=== PATIENT | female | born 1955 | race Caucasian/White ===

== ENCOUNTER 2017-11-23 14:52 | Emergency (ER) | payer BC ==
[2017-11-23] MEDS ORDERED: HYDROmorphONE/DILAUDID 2 MG/ML INJ IVP ONE (15:05)
[2017-11-23] MEDS ORDERED: ONDANSETRON 4 MG/2 ML VIAL IVP ONE (15:05)
[2017-11-23] MEDS ORDERED: NS 500 ML IV ONE (15:05)
--- NOTE | 2017-11-23 15:13 | EDPHY ---
H & P Time Seen by Provider: 11/23/17 15:01 HPI/ROS: HPI Abdominal pain. 62-year-old female by private vehicle. She complains of right lower quadrant abdominal pain which is described as aching and cramping onset 2 hr prior to arrival. No associated nausea. No vomiting. Last bowel movement was about an hour ago. No diarrhea. No bloody or melenic stool. Last meal was about an hour ago. Prior abdominal surgical history includes . ROS: Constitutional: No fever, no chills. No weakness. Eyes: No discharge. No changes in vision. ENT: No sore throat. No nasal congestion or rhinorrhea. Respiratory: No cough. No shortness of breath. Cardiac: No chest pain, no palpitations. Gastrointestinal: As above, no vomiting, no diarrhea. Genitourinary: No hematuria. No dysuria or increased frequency with urination. Musculoskeletal: No back pain. No neck pain. No myalgias or arthralgias. Skin: No rashes. Neurological: No headache. No focal weakness or altered sensation. Past medical history: As above. Otherwise no significant past medical history. Social history: She is here with her daughter. Nonsmoker. Social alcohol. Physical Exam: General Appearance: Alert, no distress. This patient is responding to questions appropriately and in full sentences. This patient appears well- hydrated and well-nourished. Eyes: Pupils equal and round no pallor or injection. No lid edema, erythema or injection. Respiratory: There are no retractions, lungs are clear to auscultation with good air movement bilaterally. Cardiovascular: Regular rate and rhythm. No murmur. Gastrointestinal: Abdomen is soft with mild to moderate right lower quadrant tenderness on palpation, no masses, bowel sounds normal. No focal tenderness at McBurney's point. No Condon sign. Neurological: Motor sensory function is grossly intact. Cranial nerves are normal. Gait is normal. Skin: Warm and dry, no rashes. Musculoskeletal: Neck is supple and nontender. Extremities are symmetrical. All joints range without pain or impingement. Psychiatric: No agitation. No depression. Database: EKG: Imaging: CT abdomen and pelvis with IV contrast: The appendix is well visualized and is normal. Study significant for a right-sided stone which measures 2 x 5 mm x 5 model meters which appears to be just inside the bladder. There is moderate right-sided hydronephrosis. Hepatic steatosis is noted. This study is otherwise normal. Study discussed with staff radiologist Dr. Ki Mcdowell. Procedures: Emergency department course: Vital signs reviewed. She is hypertensive. Vital signs otherwise normal. She consents for CT imaging to evaluate for appendicitis. She will be given IV hydromorphone and IV Zofran as needed for pain and nausea. 4:55 p.m., patient re-evaluated. She is comfortable at this time since having the above pain medication which included 0.25 mg of IV hydromorphone. She was given a dose of Toradol 30 mg IV. No contraindications to NSAIDs. No history of peptic ulcer disease or renal dysfunction. She was given 0.4 mg of oral Flomax. She feels comfortable going home at this time with her daughter who is present at bedside. She will return to [place] tomorrow. She will follow up with a urologist in [place] this week. She feels comfortable being discharged. Return to emergency department precautions reviewed with her. All of her questions were answered. She was discharged in good condition. Differential Diagnosis: The differential diagnosis on this patient includes but is not limited to ureterolithiasis, appendicitis, ovarian cyst, urinary tract infection, constipation. This represents a partial list of diagnoses considered. These considerations are based on history, physical exam, past history, reassessment and diagnostic testing. Smoking Status: Never smoked Constitutional: Initial Vital Signs Temperature (C) 37.0 C 11/23/17 14:54 Heart Rate 62 11/23/17 14:54 Respiratory Rate 18 11/23/17 14:54 Blood Pressure 188/94 H 11/23/17 14:54 O2 Sat (%) 100 11/23/17 14:54 O2 Delivery Mode Nasal Cannula O2 (L/minute) 2 Allergies/Adverse Reactions: No Known Allergies Allergy (Unverified 11/23/17 14:54) Home Medications: Medication Instructions Recorded Docusate Sodium [Colace 100 MG (*)] 100 mg PO TID #20 cap 11/23/17 Hydrocodone/APAP 5/325 [[place] 1 - 2 tab PO Q4-6PRN PRN #14 tab 11/23/17 5/325 (*)] Ondansetron Odt [Zofran Odt 4 mg 4 mg PO Q4PRN PRN #10 tab 11/23/17 (*)] Tamsulosin HCl [Flomax 0.4 MG (*)] 0.4 mg PO DAILY #4 cap 11/23/17 Medical Decision Making - Diagnostics Imaging Results: Imaging Impressions Abdomen CT 11/23/17 15:06 Impression: 1. Moderate right hydroureteronephrosis secondary to a 2 x 5 x 5 mm stone near the right ureterovesical junction seen along the posterior margin of the urinary bladder. 2. Mild generalized hepatic steatosis. 3. Small hiatal hernia. 4. Normal CT appearance of the retrocecal appendix. Findings were discussed with Bruna Austin MD at 16:49, on 11/23/2017. - Data Points Laboratory Results: Laboratory Results 11/23/17 15:05 11/23/17 15:06 11/23/17 11/23/17 11/23/17 15:20 15:06 15:05 WBC 7.32 10^3/uL 10^3/uL (3.80-9.50) RBC 4.90 10^6/uL 10^6/uL (4.18-5.33) Hgb 13.3 g/dL g/dL (12.6-16.3) Hct 41.5 % % (38.0-47.0) MCV 84.7 fL fL (81.5-99.8) MCH 27.1 pg L pg (27.9-34.1) MCHC 32.0 g/dL L g/dL (32.4-36.7) RDW 13.2 % % (11.5-15.2) Plt Count 307 10^3/uL 10^3/uL (150-400) MPV 10.5 fL fL (8.7-11.7) Neut % (Auto) 62.0 % % (39.3-74.2) Lymph % (Auto) 29.5 % % (15.0-45.0) Irwin % (Auto) 5.5 % % (4.5-13.0) Eos % (Auto) 1.6 % % (0.6-7.6) Baso % (Auto) 0.7 % % (0.3-1.7) Nucleat RBC Rel Count 0.0 % % (0.0-0.2) Absolute Neuts (auto) 4.54 10^3/uL 10^3/uL (1.70-6.50) Absolute Lymphs (auto) 2.16 10^3/uL 10^3/uL (1.00-3.00) Absolute Monos (auto) 0.40 10^3/uL 10^3/uL (0.30-0.80) Absolute Eos (auto) 0.12 10^3/uL 10^3/uL (0.03-0.40) Absolute Basos (auto) 0.05 10^3/uL 10^3/uL (0.02-0.10) Absolute Nucleated RBC 0.00 10^3/uL 10^3/uL (0-0.01) Immature Gran % 0.7 % % (0.0-1.1) Immature Gran # 0.05 10^3/uL 10^3/uL (0.00-0.10) Sodium 146 mEq/L H mEq/L (135-145) Potassium 3.8 mEq/L mEq/L (3.5-5.2) Chloride 104 mEq/L mEq/L (97-110) Carbon Dioxide 26 mEq/l mEq/l (22-31) Anion Gap 16 mEq/L mEq/L (8-16) BUN 20 mg/dL mg/dL (7-23) Creatinine 1.0 mg/dL mg/dL (0.6-1.0) Estimated GFR 56 Glucose 117 mg/dL H mg/dL (70-100) Calcium 9.8 mg/dL mg/dL (8.5-10.4) Urine Color YELLOW Urine Appearance HAZY Urine pH 6.0 (5.0-7.5) Ur Specific [place] 1.016 (1.002-1.030) Urine Protein NEGATIVE (NEGATIVE) Urine Ketones TRACE H (NEGATIVE) Urine Blood 2+ H (NEGATIVE) Urine Nitrate NEGATIVE (NEGATIVE) Urine Bilirubin NEGATIVE (NEGATIVE) Urine Urobilinogen NEGATIVE EU EU (0.2-1.0) Ur Leukocyte Esterase TRACE H (NEGATIVE) Urine RBC 10-15 /hpf H /hpf (0-3) Urine WBC 1-3 /hpf /hpf (0-3) Ur Epithelial Cells TRACE /lpf /lpf (NONE-1+) Urine Mucus TRACE /lpf /lpf (NONE-1+) Urine Glucose NEGATIVE (NEGATIVE) Medications Given: Discontinued Medications Hydromorphone HCl (Dilaudid) 0.25 mg IVP EDNOW ONE Stop: 11/23/17 15:06 Last Admin: 11/23/17 15:13 Dose: 0.25 mg Sodium Chloride (Ns) 500 mls @ 0 mls/hr IV EDNOW ONE; Wide Open PRN Reason: Protocol Stop: 11/23/17 15:06 Last Admin: 11/23/17 15:12 Dose: 500 mls Ondansetron HCl (Zofran) 4 mg IVP EDNOW ONE Stop: 11/23/17 15:06 Last Admin: 11/23/17 15:12 Dose: 4 mg Departure - Departure Disposition: Home, Routine, Self-Care Clinical Impression: Lower abdominal pain, Renal colic on right side, Ureterolithiasis Condition: Good Instructions: Kidney Stones (ED) Additional Instructions: Read and follow provided instructions. Follow-up with your urologist when you return home to [facility] this week. Take medication as prescribed. If needed, you can start taking ibuprofen as needed for pain tomorrow morning. Ibuprofen dosin mg every 6 hours with meals for the next 3 days only. Take only as needed for pain. Return to the emergency department for worsening worsening or uncontrolled pain , vomiting, fever or other serious concerns. Referrals: NONE *PRIMARY CARE P,. [Unknown] - As per Instructions Prescriptions: Docusate Sodium [Colace 100 MG (*)] 100 mg PO TID #20 cap Hydrocodone/APAP 5/325 [[place] 5/325 (*)] 1 - 2 tab PO Q4-6PRN PRN #14 tab PRN Reason: Pain, Moderate Ondansetron Odt [Zofran Odt 4 mg (*)] 4 mg PO Q4PRN PRN #10 tab PRN Reason: For Nausea & Vomiting Tamsulosin HCl [Flomax 0.4 MG (*)] 0.4 mg PO DAILY #4 cap
[2017-11-23 15:23] LABS: PLATELET COUNT 307 10^3/uL (150-400)
[2017-11-23] MEDS ORDERED: IOPAMIDOL (ISOVUE-300) 100 ML BTL ONE (16:06)
[2017-11-23] MEDS ORDERED: TAMSULOSIN HCL 0.4 MG CAP PO ONE (17:00)
[2017-11-23] MEDS ORDERED: KETOROLAC 30 MG/1 ML SDV IVP ONE (17:00)
[2017-11-23] MEDS ORDERED: ONDANSETRON 4MG PREPACK#2 BTL TAKEHOME ONE (17:04)
[2017-11-23] MEDS ORDERED: HYDROCOD/APAP 5/325 PREPACK#6 BTL TAKEHOME ONE (17:04)
[2017-11-23 17:22] VITALS: BP 171/88
== END 2017-11-23 17:27 | disposition home or self-care (01) ==
DX: N20.1 Calculus of ureter (principal); N23 Unspecified renal colic; E86.9 Volume depletion, unspecified
CPT/HCPCS: 96374; J1170; J1885; J2405; Q9967